=== PATIENT | female | born 1995 | race African-American/Black ===

== ENCOUNTER 2017-01-30 12:56 | Emergency (ER) | payer MEDICAID ==
[~2017-01-30] VITALS: Ht 167.6 cm; Wt 72.9 kg
[2017-01-30 13:00] VITALS: BP 134/79
[2017-01-30] MEDS ORDERED: IBUPROFEN 200 MG TABLET ONE (13:23)
[2017-01-30] MEDS ORDERED: IBUPROFEN 200 MG TABLET PO ONE (13:30)
== END 2017-01-30 13:33 | disposition home or self-care (01) ==
LOC: EDBD 12:56 → ED 13:10
DX: K08.89 Other specified disorders of teeth and supporting structures (principal); F17.200 Nicotine dependence, unspecified, uncomplicated; F12.10 Cannabis abuse, uncomplicated
CPT/HCPCS: 99283

== ENCOUNTER 2017-02-18 12:17 | Emergency (ER) | payer MEDICAID ==
[~2017-02-18] VITALS: Ht 167.6 cm; Wt 75.7 kg
[2017-02-18 13:15] VITALS: BP 121/78
== END 2017-02-18 13:26 | disposition home or self-care (01) ==
LOC: ED 13:23
DX: N75.1 Abscess of Bartholin's gland (principal)
CPT/HCPCS: 99283

== ENCOUNTER 2017-03-16 19:57 | Emergency (ER) | payer MEDICAID ==
[~2017-03-16] VITALS: Ht 167.6 cm; Wt 78.4 kg
[2017-03-16 20:00] VITALS: BP 147/87
[2017-03-16] MEDS ORDERED: OXYcodone/APAP 5/325MG TABLET ONE (21:06)
[2017-03-16] MEDS ORDERED: ONDANSETRON ODT 4 MG ONE (21:07)
[2017-03-16] MEDS ORDERED: ONDANSETRON ODT 4 MG PO ONE (21:30)
[2017-03-16] MEDS ORDERED: OXYcodone/APAP 5/325MG TABLET PO ONE (21:30)
== END 2017-03-16 21:30 | disposition home or self-care (01) ==
LOC: ED 21:24
DX: K02.9 Dental caries, unspecified (principal)
CPT/HCPCS: 99283; Q0162

== ENCOUNTER 2017-12-27 14:13 | Emergency (ER) | payer MEDICAID ==
[~2017-12-27] VITALS: Ht 167.6 cm; Wt 80.0 kg
[2017-12-27 15:31] VITALS: BP 117/98
== END 2017-12-27 15:57 | disposition home or self-care (01) ==
LOC: ED 15:51
DX: K02.9 Dental caries, unspecified (principal); F17.200 Nicotine dependence, unspecified, uncomplicated
CPT/HCPCS: 99283